=== PATIENT | male | born 1970 | race Caucasian/White ===

== ENCOUNTER 2025-02-11 18:24 | Emergency (ER) | payer BC, SELFPAY ==
--- OUTSIDE RECORDS SUMMARY | 2025-02-11 18:27 | XMS_ITS | CCD ---
Author Name Interface, [id number] lity Address [address] [place] [address] [address] [place] [address] Organization [facility] Address [address] [facility] [address] [place] [address] Care Team Providers Care Evening Anchor Name Role Phone Bradley CANAS, Andre Unavailable Unavailable Allergies and Adverse Reactions Medication/Group Name Reaction Severity Date Augmentin 09/28/2019 Reason for Visit New Appointment Medications Date Name Route Dose Frequency Instructions Start Date End Date Status Fill Status Indication 08/14 Cholecal ciferol Oral 1.0 tablet daily active 08/14 Fluticas one Nasal [place] 50 mcg/actu ation 2.0 spray,s uspensi on daily active 08/14 Lysine Oral 1.0 tablet daily active 08/14 Cetirizi ne Oral 1.0 tablet daily active Problems Diagnosis Status Date of Diagnosis Resolution Date Soft tissue mass Active Social History Date Name Value 08/15/2019 Sex Male
--- OUTSIDE RECORDS SUMMARY | 2025-02-11 18:27 | XMS_ITS ---
Author Name Interface, [id number] lity Address [address] [facility] [address] [address] [facility] Address [address] [facility] [address] [address] Allergies and Adverse Reactions Medication/Group Name Reaction Severity Date Augmentin 09/28/2019 Plan Date Type Value 10/05/2019 APPOINTMENT New Appointment Reason for Visit New Appointment Encounters Date Name 10/05/2019 Soft tissue mass Medications Date Name Route Dose Frequency Instructions Start Date End Date Status Fill Status Indication 08/14 Cetirizi ne Oral 1.0 tablet daily active 08/14 Lysine Oral 1.0 tablet daily active 08/14 Cholecal ciferol Oral 1.0 tablet daily active 08/14 Fluticas one Nasal [place] 50 mcg/actu ation 2.0 spray,s uspensi on daily active Problems Diagnosis Status Date of Diagnosis Resolution Date Soft tissue mass Active Vital Signs Date Type Value 10/05/2019 Body Temperature 97.40 10/05/2019 Weight 216.80 10/05/2019 Pain Scale 0.00 10/05/2019 BMI 32.96 10/05/2019 BSA 2.12 10/05/2019 Height 68.00
--- OUTSIDE RECORDS SUMMARY | 2025-02-11 18:27 | XMS_ITS | Clinical Summary ---
Author Organization [facility] Address [address] [place] [address] Care Team Providers Care Agile Project Manager Name Role Phone Viridiana Gold RN Unavailable [phone] Lashaun Cheng MD Unavailable [phone] Andre Huerta MD Unavailable [phone] Jocelyne England MD Primary Care Provider Allergies Active Allergy Reactions Criticality Noted Date Comments Amoxicillin Hives 01/10/2012 Losartan Paresthesias 09/30/2024 Pollen Extracts Runny Nose 11/10/2019 Seasonal allergies Medications fluticasone (50 mcg per actuation) nasal solution (FLONASE) Inhale 2 Sprays to both nostrils once daily. 16 g 2 Active atorvastatin (LIPITOR) 10 mg tabletIndications :Elevated coronary artery calcium score,Family history of ASCVD Take 1 Tablet (10 mg) by mouth at bedtime. 100 Tablet 3 5 Active aspirin chewable 81 mg chewable tablet Chew 1 Tablet (81 mg) by mouth once daily with a meal. 5 Active escitalopram oxalate 10 mg tabletIndications :Anxiety Take 1 Tablet (10 mg) by mouth once daily in the morning. 93 Tablet 1 5 Active amLODIPine (NORVASC) 5 mg tabletIndications :Essential hypertension Take 1 Tablet (5 mg) by mouth once daily. 93 Tablet 3 5 Active enalapril (VASOTEC) 2.5 mg tabletIndications :Essential hypertension Take 1 Tablet (2.5 mg) by mouth once daily. 93 Tablet 3 5 Active Active Problems Problem Noted Date Diagnosed Date Family history of ASCVD 03/24/2024 Anxiety 03/24/2024 Sarcoma Immunizations Immunization Administration Dates Next Due COVID-19 VACCINE SPIKEVAX (M ODERNA 50MCG/0.5ML) 12YO+ PFS 03/24/2024 COVID-19 vaccine (Trendyta-Bio NTech 30mcg/0.3mL) 12YO+ BIVALENT PF, MDV 03/06/2022 COVID-19 vaccine (Pfizer-Bio NTech 30mcg/0.3mL) PF, MDV 04/19/2021 INFLUENZA, IIV3 PF (AGE >= 6 MO) 03/24/2024 Influenza A (H1N1), Inactivated 09/03/2009 Influenza Intradermal PF 18-64 yrs 02/02/2012 Influenza, IIV3 (Age 6-35 mos) 02/20/2009 Influenza, IIV3 (Age >=3 years) 02/20/2010 Influenza, IIV4 03/13/2023, 2,04/19/2021,2017,02/06/2017,02/12/2016 Td (Age >=7 Years) 04/10/2000 Td, Preservative Free (age > = 7 Years) 11/09/2019 Tdap 07/20/2007 Family History Medical History Relation Name Comments Heart Disease Father first MD age 3 3, 2nd MD age 54 and Cancer-breast Mother Gianna Coy Heart Disease Mother Gianna Coy bypass in her 60s Other Sister Fibromyalgia Relation Name Status Comments Father Mother Gianna Coy Sister Social History Tobacco Use Types Packs/Day Years Used Date Smoking Tobacco: Former Cigarettes Q uit: 05/2009 Smokeless Tobacco: Former Chew Quit: 05/11/1989 Tobacco Cessation:Counseling Given: Yes Comments:no exposure Alcohol Use Standard Drinks/Week Comments Yes 9 (1 standard drink = 0.6 oz pure alcohol) glass of wine daily, 7-10 drinks per week PHQ-2 Answer Date Recorded PHQ-2 TOTAL SCORE 1 03/24/2024 Social Connections Answer Date Recorded Do you often feel lonely or isolated from those around you? 0 03/23/2024 Financial Resource Strain Answer Date R ecorded Difficulty of Paying Living Expenses 3 03/24/2024 Difficulty of Paying Living Expenses Not on file 03/24/2024 Food Insecurity Answer Date Recorded Do you worry your food will run out before you are able to buy more? 1 03/23/2024 Transportation Needs Answer Date Record ed Does lack of transportation keep you from medica l appointments? 1 03/23/2024 Does lack of transportation keep you from work, meetings or getting things that you need? 1 03/23/2024 Housing Stability Answer Date Recorded What is your housing situation today? 1 03/23/2024 Utilities Answer Date Recorded Do you have trouble paying f or utilities (for example, heat, electricity, water, phone)? 1 03/23/2024 Sex and Gender Information Value Date Recorded Sex Assigned at Not on file Legal Sex Male 8:38 AM PORTFOLIO CONSULTANT Gender Identity Not on file Sexual Orientation Not on file Obstetrics History Last Filed Vital Signs Vital Sign Reading Time Taken Comments Blood Pressure 146/86 11/07/2024 3:53 PM CDT Pulse 63 11/07/2024 3:53 PM CDT Temperature 37.1 C (98.7 F) 05/20/2022 3:11 PM PORTFOLIO CONSULTANT Respiratory Rate 16 05/20/2022 3:11 PM PORTFOLIO CONSULTANT Oxygen Saturation 99% 11/07/2024 3:25 PM CDT Inhaled Oxygen Concentration - - Weight 90.8 kg (200 lb 3.2 oz) 11/07/2024 3:25 P M CDT Height 194 cm (6' 4.38) 03/24/2024 7:49 AM PORTFOLIO CONSULTANT Body Mass Index 24.13 03/24/2024 7:49 AM PORTFOLIO CONSULTANT Plan of Treatment Upcoming Encounters Date Type Department Care Team (Late st Contact Info) Description 02/16/2025 4:00 PM CDT Orders Only [facility] [address] [place] [address] Lab, [place] Health Maintenance Due Date Last Done Comments HIV for age 15-65 1983 Hepatitis B series for 19+ ( 1 of 3 - 19+ 3-dose series) 1987 Pneumococcal series for age 50+ (1 of 2 - PCV) 1987 Zoster (shingles) series for age 50+ (1 of 2) 2018 Influenza Vaccine (#1) 2025 , 03/13/2023, 03/06/2022, Additional history exists BMI (ht and wt on same day) for age 18+ 03/24/2025 03/24/2024, 05/20/2022, 03/06/2022, Additional history exists Depression screening for age 12+ 03/24/2025 03/24/2024, 03/06/2022, 04/19/2021 Fecal testing sDNA-FIT ([place]nette guard) for age 45-75 04/17/2025 04/17/2022 Lipids for age 45-75 09/23/2029 09/23/2024, 03/06/20 22 Tetanus booster 11/08/2029 11/09/2019, 0305/2007, 04/10/2000 RSV vaccine for adults or (1 - 1-dose 75+ series) 2043 Hepatitis C screening for ag e 18-79 Completed 03/06/2022 COVID-19 vaccine series Completed 03/24/20 24, 03/13/2023, 03/06/2022, Additional history exists Procedures Procedure Name Priority Date/Time Associated Diagnosis Comments LIPID PANEL W REFLEX MEASURED LDL Routine 09/23/2024 3:19 PM CDT Primary hypertension SDNA-FIT EXTERNAL (COLOGUARD) Routine 04/17/2022 8:15 AM PORTFOLIO CONSULTANT Screening for colon cancer ANTI HCV Routine 03/06/2022 8:11 AM CDT Need for hepatitis C screening test from Last 3 Months or Most Recently Relevant to Health Maintenance Results * LIPID PANEL W REFLEX MEASURED LDL (09/23/2024 3:19 PM CDT) CHOLESTEROL, TOTAL 130 <200 mg/dL [facility] HDL CHOLESTEROL 73 > OR = 40 mg/dL [facility] TRIGLYCERIDES 63 <150 mg/dL [facility] LDL-CHOLESTEROL 43 mg/dL (calc) [facility] Comment: Reference range: <100 Desirable range <100 mg/dL for primary prevention; <70 mg/dL for patients with CHD or diabetic patients with > or = 2 CHD risk factors. LDL-C is now calculated using the Addy calculation, which is a validated novel method providing better accuracy than the Friedewald equation in the estimation of LDL-C. Fredis SS et al. HAZEL. 2013;310(19): 6076-3239 (http://education.Utility Scale Solar/faq/EHZ192) CHOL/HDLC RATIO 1.8 <5.0 (calc) [facility] NON HDL CHOLESTEROL 57 <130 mg/dL (calc) [facility] Comment: For patients with diabetes plus 1 major ASCVD risk factor, treating to a non-HDL-C goal of <100 mg/dL (LDL-C of <70 mg/dL) is considered a therapeutic option. Blood BLOOD SPECIMEN / Unknown 09/23/2024 3:19 PM CDT 09/23/2024 3:20 PM CDT us Jocelyne England MD CHEMISTRY Final Resul t [employer] [facility] [address] [place] [address], [employer] [address] * SDNA-FIT EXTERNAL (COLOGUARD) (04/17/2022 8:15 AM PORTFOLIO CONSULTANT) NONINV COLON CA DNA+OCC BLD SCRN STL-IMP Negative Negative 04/23/2022 7:17 PM PORTFOLIO CONSULTANT [facility] (CLIA #:[id number]) Comment: NEGATIVE TEST RESULT. A negative Cologuard result indicates a low likelihood that a colorectal cancer (CRC) or advanced adenoma (adenomatous polyps with more advanced pre-malignant features) is present. The chance that a person with a negative Cologuard test has a colorectal cancer is less than 1 in 1500 (negative predictive value >99.9%) or has an advanced adenoma is less than 5.3% (negative predictive value 94.7%). These data are based on a prospective cross-sectional study of 10,000 individuals at average risk for colorectal cancer who were screened with both Cologuard and colonoscopy. (Violeta Chappell, N Engl J Med 2014;370(14):6404-3871) The normal value (reference range) for this assay is negative. COLOGUARD RE-SCREENING RECOMMENDATION: Periodic colorectal cancer screening is an important part of preventive healthcare for asymptomatic individuals at average risk for colorectal cancer. Following a negative Cologuard result, the [place] Cancer Society and U.S. Multi-Society Task Force screening guidelines recommend a Cologuard re-screening interval of 3 years. References: [place] [employer] Guideline for Colorectal Cancer Screening: https://www.cancer.org/cancer/bkxcj-gelcbs-ilxvcz/fahvoupij-shydmvufv-odtovpy/ac s-rec ommendations.html.; Miguel DK, Tom LEARY, Sonia ScruggsK, Colorectal Cancer Screening: Recommendations for Physicians and Patients from the U.S. Multi-Society Task Force on Colorectal Cancer Screening , Am J Gastroenterology 2017; 112:8689-9925. TEST DESCRIPTION: Composite algorithmic analysis of stool DNA-biomarkers with hemoglobin immunoassay. Quantitative values of individual biomarkers are not reportable and are not associated with individual biomarker result reference ranges. Cologuard is intended for colorectal cancer screening of adults of either sex, 45 years or older, who are at average-risk for colorectal cancer (CRC). Cologuard has been approved for use by the U.S. FDA. The performance of Cologuard was established in a cross sectional study of average-risk adults aged 50-84. Cologuard performance in patients ages 45 to 49 years was estimated by sub-group analysis of near-age groups. Colonoscopies performed for a positive result may find as the most clinically significant lesion: colorectal cancer [4.0%], advanced adenoma (including sessile serrated polyps greater than or equal to 1cm diameter) [20%] or non- advanced adenoma [31%]; or no colorectal neoplasia [45%]. These estimates are derived from a prospective cross-sectional screening study of 10,000 individuals at average risk for colorectal cancer who were screened with both Cologuard and colonoscopy. (Violeta Dennison al, N Engl J Med 2014;370(14):2448-4135.) Cologuard may produce a false negative or false positive result (no colorectal cancer or precancerous polyp present at colonoscopy follow up). A negative Cologuard test result does not guarantee the absence of CRC or advanced adenoma (pre-cancer). The current Cologuard screening interval is every 3 years. ([place] Cancer Society and U.S. Multi-Society Task Force). Cologuard performance data in a 10,000 patient pivotal study using colonoscopy as the reference method can be accessed at the following location: www.[employer].Mediastream/results. Additional description of the Cologuard test process, warnings and precautions can be found at www.[employer]rd.Mediastream. Stool specimen (specimen) (Rectum) 04/17/2022 8:15 AM PORTFOLIO CONSULTANT 04/18/2022 1:40 PM PORTFOLIO CONSULTANT Linn BOOTH URINE Final Resu lt [facility] (CLIA #:[id number]) Ana [place]ía [place] [address], * ANTI HCV (03/06/2022 8:11 AM CDT) HEPATITIS C ANTIBODY Non-React malik Non-React malik 03/08/2022 3:27 AM CDT [facility] Comment:Antibodies to HCV no t detected; does not exclude the possibility of exposure to HCV. Blood BLOOD SPECIMEN / Unknown Venipuncture / Unknown 03/06/2022 8:11 AM CDT 03/06/2022 8:11 AM CDT Linn BOOTH SEND OUTS Final Resu lt [facility] [address] [place] [address], [place] from Last 3 Months or Most Recently Relevant to Health Maintenance Insurance [place] Advance Directives * Full Code (Latest Code Status on File) Date Activated Date Inactivated Comments 11/14/2019 5:34 AM 11/15/2019 3:39 PM * Full Code Date Activated Date Inactivated Comments 11/14/2019 5:34 AM 11/14/2019 5:34 AM Care Teams Agile Project Manager Relationship Specialty Start Date End Date Jocelyne England MD [address] [place] [address] PCP - General Family Practice 09/23/24 Viridiana Gold, EPHRAIM [address] [place] [address] Cancer Nurse Coordinator Registered Nurse 07/22/19 Lashaun Cheng MD [address] [place] [address] Surgery - General 07/22/19 Andre Huerta MD [address] [place] [address] Radiation Oncology 08/09/19
[2025-02-11 18:42] VITALS: BP 136/78; PULSE 63; RESP 18; TEMP 37.1; O2SAT 96; BMI 24.3
--- NOTE | 2025-02-11 19:17 | ED.WOUNDLAC ---
HPI - Wound/Laceration General Chief Complaint: Laceration/Wound Stated Complaint: Split Lip Time Seen by Provider: 02/11/25 18:57 History of Present Illness HPI narrative: This 54-year-old male comes in with a laceration to his upper lip. He was using a corkscrew to remove a core can as it released it came back and hit him in the upper lip. He has a 1 cm laceration on edge of the lip that comes right to the vermilion border of the lip. He does not have any injury inside his mouth. He states that his tetanus status is up-to-date. Related Data Home Medications ?Medication ?Instructions ?Recorded ?Confirmed amlodipine 5 mg tablet 5 mg PO DAILY 02/11/25 02/11/25 atorvastatin 10 mg tablet 10 mg PO QPM 02/11/25 02/11/25 enalapril maleate 2.5 mg tablet 2.5 mg PO DAILY 02/11/25 02/11/25 escitalopram oxalate 10 mg tablet 10 mg PO QAM 02/11/25 02/11/25 Allergies Allergy/AdvReac Type Severity Reaction Status Date / Time amoxicillin (From Augmentin) Allergy Hives Verified 02/11/25 18:45 clavulanic acid (From Allergy Hives Verified 02/11/25 18:45 Augmentin) Review of Systems Status of ROS: Reports: 10 or more systems reviewed and unremarkable except as noted in History and below Narrative: Constitutional: No fevers, no weight gain or loss. Eyes: No discharge. No vision changes. HENT: No congestion, no sore throat, no ear pain. Cardiovascular: No chest pain, no palpitations. Respiratory: No shortness of breath, no wheezes, no cough. Gastrointestinal: No abdominal pain, no vomiting, no diarrhea. Genitourinary: No dysuria, no hematuria. Musculoskeletal: Normal range of motion. Skin: No rashes, no pruritis. Neurological: No dizziness, weakness, sensory change, speech change. Endo/Heme/Allergies: No bruising or bleeding. No polydipsia. Pysch: no suicidality, no anxiety, no insomnia. All other systems reviewed and are negative. PFSH PFSH Social History Smoking Status: Never smoker Second hand tobacco smoke exposure: No How often do you have a drink containing alcohol: never AUDIT-C Alcohol total score: 0 Non-prescribed substance use: denies use Exam Narrative: Exam Narrative: Constitutional: Well-developed, well-nourished, no acute distress. HEENT: 1 cm linear laceration on the edge of the upper lip. Neck: Normal range of motion. Nontender. Supple. Heart: Intact distal pulses. Lungs: No chest discomfort. No wheezes, rhonchi, or rales. Abdomen: Nontender. Back: Normal range of motion. Extremities: Normal range of motion. No injury. Skin: Intact. No rash. Warm. No erythema or pallor. Neurologic: No altered sensation. No weakness. Alert and oriented. Psychiatric: No suicidality. No anxiety or depression. No insomnia. Nursing notes and vitals signs are reviewed. Const: Vital Signs, click to edit/add: Vital Signs - 24 hr 02/11/25 18:42 Temperature 98.8 F Pulse Rate [Right Pulse Oximeter] 63 Respiratory Rate 18 Blood Pressure [Ri ght Upper Arm] 136/78 Pulse Oximetry 96 Oxygen Delivery Me thod Room Air Course Vital Signs Vital signs: Initial Vital Signs Temperature 98.8 F 02/11/25 18:42 Temperature Source Temporal Artery Scan 02/11/25 18:42 Pulse Rate 63 02/11/25 18:42 Pulse Rhythm Regular 02/11/25 18:42 Pulse Strength 3+ Normal 02/11/25 18:42 Respiratory Rate 18 02/11/25 18:42 Blood Pressure 136/78 02/11/25 18:42 Blood Pressure Mean 97 02/11/25 18:42 Blood Pressure Position Sitting 02/11/25 18:42 Pulse Oximetry 96 02/11/25 18:42 Oxygen Delivery Method Room Air 02/11/25 18:42 Vital Signs Temperature 98.8 F 02/11/25 18:42 Pulse Rate 63 02/11/25 18:42 Respiratory Rate 18 02/11/25 18:42 Blood Pressure 136/78 02/11/25 18:42 Pulse Oximetry 96 02/11/25 18:42 Oxygen Delivery Method Room Air 02/11/25 18:42 Temperature 98.8 F 02/11/25 18:42 Pulse Rate 63 02/11/25 18:42 Respiratory Rate 18 02/11/25 18:42 Blood Pressure 136/78 02/11/25 18:42 Pulse Oximetry 96 02/11/25 18:42 Oxygen Delivery Method Room Air 02/11/25 18:42 MDM - Wound/Laceration MDM Narrative Medical decision making narrative: This patient has a lip laceration who is wound edges are nicely approximated. When he does stretches lips it does open up a bit. The edge of the wound does not cross the vermilion border. I did talk about wound repair options and the patient would like Dermabond applied. I placed a 2 x 2 gauze under is lip to prevent glue from getting inside his mouth on to his teeth. Dermabond was applied and the skin edges are nicely approximated. Instructions regarding wound care were given. Discharge Plan Discharge Clinical Impression: Laceration Patient Disposition: Home, Self-Care Condition: Stable Additional Instructions: Use [id number] medicines as needed and directed. Follow up with MD as needed. Prescriptions: No Action atorvastatin 10 mg tablet 10 mg PO QPM enalapril maleate 2.5 mg tablet 2.5 mg PO DAILY amlodipine 5 mg tablet 5 mg PO DAILY escitalopram oxalate 10 mg tablet 10 mg PO QAM Follow Up/Referrals: Provider,Not a Local [Primary Care Provider, Family Practice] Stand Alone Forms: MyHealth Info Instructions
[2025-02-11 19:30] VITALS: PULSE 61; RESP 16; O2SAT 98
--- OUTSIDE RECORDS SUMMARY | 2025-02-11 19:31 | XMS_ITS | CCD ---
Author Name Interface, [id number] lity Address [address] [place], [place] [address] [place] [address] [facility] Address [address] [place] [address] Care Team Providers Care Nps Name Role Phone Bradley CANAS, Andre Unavailable Unavailable Allergies and Adverse Reactions Reason for Visit Medications Problems Social History
--- OUTSIDE RECORDS SUMMARY | 2025-02-11 19:31 | XMS_ITS ---
Author Name Interface, [id number] lity Address [address] [facility] [address] [address] [facility] Address [address] [facility] [address] [address] Allergies and Adverse Reactions Medication/Group Name Reaction [...] tablet daily active 08/14 Fluticas one Nasal [place] 50 mcg/actu ation 2.0 spray,s uspensi on daily active Problems Diagnosis Status Date of Diagnosis Resolution Date Soft tissue mass Active Vital Signs Date Type Value 10/05/2019 Body Temperature 97.40 10/05/2019 Weight 216.80 10/05/2019 Pain Scale 0.00 10/05/2019 BMI 32.96 10/05/2019 BSA 2.12 10/05/2019 Height 68.00
--- OUTSIDE RECORDS SUMMARY | 2025-02-11 19:31 | XMS_ITS ---
Author Name Interface, [id number] lity Address [address] [place], [place] [address] [place] [address] [facility] Address [facility] [address] [place] [address] Allergies and Adverse Reactions Plan Reason for Visit Encounters Medications Problems Vital Signs
--- OUTSIDE RECORDS SUMMARY | 2025-02-11 19:31 | XMS_ITS | CCD ---
Author Name Interface, [id number] lity Address [address] [place] [address] [address] [place] [address] Organization [facility] Address [address] [facility] [address] [place] [address] Care Team Providers Care Axle Inspector Name Role Phone Bradley CANAS, Andre Unavailable Unavailable Allergies and Adverse Reactions Medication/Group Name Reaction Severity Date Augmentin 09/28/2019 Reason for Visit New Appointment Medications Date Name Route Dose Frequency Instructions Start Date End Date Status Fill Status Indication 08/14 Cholecal ciferol Oral 1.0 tablet daily active 08/14 Fluticas one Nasal [place] 50 mcg/actu ation 2.0 spray,s uspensi on daily active 08/14 Lysine Oral 1.0 tablet daily active 08/14 Cetirizi ne Oral 1.0 tablet daily active Problems Diagnosis Status Date of Diagnosis Resolution Date Soft tissue mass Active Social History Date Name Value 08/15/2019 Sex Male
== END 2025-02-11 19:31 | disposition home or self-care (01) ==
LOC: ED 19:29
PROVIDERS: Emergency Provider Emergency Medicine Emergency Medical Services; PCP Family Medicine
DX: S01.511A Laceration without foreign body of lip, initial encounter (principal); W20.8XXA Other cause of strike by thrown, projected or falling object, initial encounter; Y93.89 Activity, other specified
CPT/HCPCS: 12011; 12001; 99283; 99284